=== PATIENT | female | born 1990 | race African-American/Black ===

== ENCOUNTER 2016-09-16 12:22 | Emergency (ER) | payer SELFPAY ==
[2016-09-16 12:33] VITALS: BP 144/72
[2016-09-16] MEDS ORDERED: CEPH500T PO (13:07)
--- NOTE | 2016-09-16 13:07 | PHYS DOC ---
Past Medical History Past Medical History: No Pertinent History Past Surgical History: No Surgical History Alcohol Use: Occasionally Drug Use: None Adult General Chief Complaint Chief Complaint: INSECT BITE [facility] HPI Patient is a 26 year old female presents to the emergency department with multiple blood bites on the right thigh as well as on the right hand, left upper arm. The areas appear to be red swollen and tender. No drainage or discharge noted from the site. Patient denies any fever, chills or any nausea vomiting. She is unsure when her last tetanus immunization occurred. Patient states the areas itch and are very irritated. She has not tried anything at home. Review of Systems Review of Systems Constitutional: Denies fever or chills [] Eyes: Denies change in visual acuity, redness, or eye pain [] HENT: Denies nasal congestion or sore throat [] Respiratory: Denies cough or shortness of breath [] Cardiovascular: No additional information not addressed in HPI [] GI: Denies abdominal pain, nausea, vomiting, bloody stools or diarrhea [] : Denies dysuria or hematuria [] Musculoskeletal: Denies back pain or joint pain [] Integument: Denies rash or skin lesions. Bites per multiple areas. Neurologic: Denies headache, focal weakness or sensory changes [] Endocrine: Denies polyuria or polydipsia [] Allergies Allergies Allergies Coded Allergies Type Severity Reaction Last Updated Verified No Known Drug Allergies 03/13/14 No Physical Exam Physical Exam Constitutional: Well developed, well nourished, no acute distress, non-toxic appearance. [] HENT: Normocephalic, atraumatic, bilateral external ears normal, oropharynx moist, no oral exudates, nose normal. [] Eyes: PERRLA, EOMI, conjunctiva normal, no discharge. [] Neck: Normal range of motion, no tenderness, supple, no stridor. [] Cardiovascular:Heart rate regular rhythm, no murmur [] Lungs & Thorax: Bilateral breath sounds clear to auscultation [] Skin: Warm, dry, no erythema, no rash. Patient with multiple bites throughout the body. The areas on the right thigh appears to be red warm and tender to touch no drainage or discharge noted from the site. Back: No tenderness Extremities: No tenderness, no cyanosis, no clubbing, ROM intact, no edema. [] Neurologic: Alert and oriented X 3, normal motor function, normal sensory function, no focal deficits noted. [] Psychologic: Affect normal, judgement normal, mood normal. [] Current Patient Data Vital Signs Vital Signs Date Time Temp Pulse Resp B/P (MAP) Pulse Ox O2 Delivery O2 Flow Rate FiO2 09/16/16 12:33 98.3 58 18 98 Room Air 98.3 EKG EKG [] Radiology/Procedures Radiology/Procedures [] Course & Med Decision Making Course & Med Decision Making Pertinent Labs and Imaging studies reviewed. (See chart for details) Patient was encouraged to use Benadryl 25 mg every 6 hours to help with itching and irritation. Recommended keeping the area clean dry and cool to help prevent irritation. Patient will be placed on antibiotics. Also recommended Aveeno baths. Signs symptoms to return back to emergency department has been provided. Patient agrees with discharge instructions, treatment regimens and follow-up recommendations. Dragon Disclaimer Dragon Disclaimer This electronic medical record was generated, in whole or in part, using a voice recognition dictation system. Departure Departure Impression: Primary Impression: Insect bites Disposition: HOME, SELF-CARE Condition: STABLE Referrals: NO PCP (PCP) Patient Instructions: Insect Bite, [id number] Additional Instructions: Benadryl 25 mg every 6 hours as needed for itching and irritation. This medication will cause drowsiness. Medications as prescribed. Keep the areas clean dry and cool this will help prevent irritation. Aveeno baths may also help soothe the skin. Follow-up with a primary care physician in the next 7-10 days. Return back to emergency prior signs symptoms that become worse. Scripts Cephalexin (CEPHALEXIN) 500 Mg Tablet 1 TAB PO BID, #20 TAB Prov: ANGIE CASEY APRN 09/16/16 ANGIE CASEY APRN Sep 16, 2016 13:07
[2016-09-16] MEDS ORDERED: DIPHTH,PERTUSS(ACELL),TET TOX 0.5 ML DISP.SYRIN. VAX IM ONE (13:15)
== END 2016-09-16 13:16 | disposition home or self-care (01) ==
LOC: ER 12:22
DX: S71.151A Open bite, right thigh, initial encounter (principal); W57.XXXA Bitten or stung by nonvenomous insect and other nonvenomous arthropods, initial encounter; Y93.89 Activity, other specified; Y99.8 Other external cause status; Y92.89 Other specified places as the place of occurrence of the external cause
CPT/HCPCS: 90471; 90715; 99283-25

== ENCOUNTER 2018-08-01 15:21 | Emergency (ER) | payer SELFPAY ==
[~2018-08-01] VITALS: Ht 172.7 cm; Wt 167.8 kg
[~2018-08-01 15:21] MED LIST: CEPH500T PO
[2018-08-01 15:54] VITALS: BP 196/89
[2018-08-01] MEDS ORDERED: LIDOCAINE 2% VISCOUS 15 ML SOLUTION. MM STA (15:56)
[2018-08-01] MEDS ORDERED: diazePAM 5 MG TABLET PO ONE (16:00)
[2018-08-01] MEDS ORDERED: cefTRIAXone IM 250 MG VIAL IM ONE (16:00)
[2018-08-01] MEDS ORDERED: AZITHROMYCIN 250 MG TABLET. PO ONE (16:00)
--- NOTE | 2018-08-01 16:25 | PHYS DOC ---
Past Medical History Past Medical History: No Pertinent History Past Surgical History: No Surgical History Alcohol Use: Occasionally Drug Use: None Adult General Chief Complaint Chief Complaint: VAGINAL PROBLEM HPI HPI Patient is a 28 year old AA female who presents to the ER with complaints of vaginal discomfort and burning with urination for the last 3 days. Pt states sx began after she used a new soap to wash her genitals. Pt denies any hx of genital herpes. She states she was checked for everything at the health department less than a year ago and denies any new sexual partners. She denies any irregular vaginal discharge, abdominal pain, nausea or vomiting. Review of Systems Review of Systems Constitutional: Denies fever or chills [] GI: Denies abdominal pain, nausea, vomiting, or diarrhea [] : Denies hematuria; see HPI Musculoskeletal: Denies back pain or joint pain [] Integument: Denies rash or skin lesions [] Neurologic: Denies headache, focal weakness or sensory changes [] All other systems were reviewed and found to be within normal limits, except as documented in this note. Current Medications Current Medications Current Medications Medications (Trade) Dose Ordered Sig/Han Start Time Stop Time Status Last Admin Dose Admin Azithromycin (Zithromax) 1,000 mg 1X ONCE 08/01/18 16:00 08/01/18 16:04 DC 08/01/18 16:16 1,000 MG Ceftriaxone Sodium (Rocephin Im) 250 mg 1X ONCE 08/01/18 16:00 08/01/18 16:04 DC 08/01/18 16:17 250 MG Diazepam (Valium) 5 mg 1X ONCE 08/01/18 16:00 08/01/18 16:04 DC 08/01/18 16:16 5 MG Lidocaine HCl (Viscous Lidocaine) 15 ml 1X STAT 08/01/18 15:56 08/01/18 16:04 DC 08/01/18 16:16 15 ML Allergies Allergies Allergies Coded Allergies Type Severity Reaction Last Updated Verified No Known Drug Allergies 03/13/14 No Physical Exam Physical Exam Constitutional: Well developed, well nourished, no acute distress, non-toxic appearance, obese. [] HENT: Normocephalic, atraumatic, bilateral external ears normal, oropharynx moist, nose normal. [] Eyes: conjunctiva normal, no discharge. [] Neck: Normal range of motion, no stridor. [] Pelvic Exam: Rn Registry present Shahrzad ALBRIGHT Abdomen: Nontender, soft External Genitalia: several blisters and ulcerations noted to external labia concerning for genital herpes Speculum: yellow to green vaginal discharge that is malodorous, ulcerations present in vaginal vault Skin: Warm, dry, no erythema, no rash. [] Extremities: No cyanosis, ROM intact Neurologic: Alert and oriented X 3, no focal deficits noted. [] Psychologic: Affect normal, judgement normal, mood normal. [] Current Patient Data Vital Signs Vital Signs Date Time Temp Pulse Resp B/P (MAP) Pulse Ox O2 Delivery O2 Flow Rate FiO2 08/01/18 15:54 98.4 104 18 196/89 (124) 100 Room Air 98.4 Lab Values Laboratory Tests Test 08/01/18 15:30 08/01/18 16:26 Urine Collection Type Unknown Urine Color Yellow Urine Clarity Clear Urine pH 5.5 Urine Specific [place] 1.025 Urine Protein Negative mg/dL (NEG-TRACE) Urine Glucose (UA) Negative mg/dL (NEG) Urine Ketones (Stick) Negative mg/dL (NEG) Urine Blood Trace (NEG) Urine Nitrite Negative (NEG) Urine Bilirubin Negative (NEG) Urine Urobilinogen Dipstick 1.0 mg/dL (0.2 mg/dL) Urine Leukocyte Esterase Trace (NEG) Urine RBC Occ /HPF (0-2) Urine WBC 1-4 /HPF (0-4) Urine Squamous Epithelial Cells Many /LPF Urine Bacteria Many /HPF (0-FEW) Urine Mucus Marked /LPF POC Urine HCG, Qualitative Hcg negative (Negative) Microbiology 08/01/18 Wet Prep - Final, Complete Laboratory Tests Test 08/01/18 15:30 08/01/18 16:26 Urine Collection Type Unknown Urine Color Yellow Urine Clarity Clear Urine pH 5.5 Urine Specific [place] 1.025 Urine Protein Negative mg/dL (NEG-TRACE) Urine Glucose (UA) Negative mg/dL (NEG) Urine Ketones (Stick) Negative mg/dL (NEG) Urine Blood Trace (NEG) Urine Nitrite Negative (NEG) Urine Bilirubin Negative (NEG) Urine Urobilinogen Dipstick 1.0 mg/dL (0.2 mg/dL) Urine Leukocyte Esterase Trace (NEG) Urine RBC Occ /HPF (0-2) Urine WBC 1-4 /HPF (0-4) Urine Squamous Epithelial Cells Many /LPF Urine Bacteria Many /HPF (0-FEW) Urine Mucus Marked /LPF POC Urine HCG, Qualitative Hcg negative (Negative) Microbiology 08/01/18 Wet Prep - Final, Complete EKG EKG [] Radiology/Procedures Radiology/Procedures [] Course & Med Decision Making Course & Med Decision Making Pertinent Labs and Imaging studies reviewed. (See chart for details) 1555- Pt notified of likely herpes outbreak, pt became very anxious and emotional, PO valium ordered. DX: BV, genital herpes, contact with suspected STI, dysuria Patient was treated prophylactically with 250 mg of IM Rocephin, and 1 g of PO Zithromax. Patient was instructed to avoid having intercourse until the results of gonorrhea and chlamydia testing are available, patient was notified that these results would not be available for 48 hours. If one or both of these tests is positive, patient needs to refrain from intercourse for approximately 1 week following the treatment of any current partners. Pt aware that viral cx takes 2-3 days for herpes test result. Dragon Disclaimer Dragon Disclaimer This electronic medical record was generated, in whole or in part, using a voice recognition dictation system. Departure Departure Impression: Primary Impression: Bacterial vaginosis Additional Impressions: Genital herpes Dysuria Contact with and (suspected) exposure to infections with a predominantly sexual mode of transmission Disposition: 01 HOME, SELF-CARE Condition: STABLE Referrals: NO PCP (PCP) Patient Instructions: Bacterial Vaginosis, [id number], Genital Herpes, Sexually Transmitted Disease, [id number] Additional Instructions: Avoid having intercourse until the results of your STD testing are available, these results would not be available for 48 hours. Follow up with your PCP if symptoms persist, return to ER if sx worsen. Scripts [viscous lidocaine] 2% No Conflict Check 1 DONG TOP Q3HRS PRN for PAIN for 5 Days, #50 ML 0 Refills Prov: MELA RUBIO APRN 08/01/18 Metronidazole (FLAGYL) 500 Mg Tablet 1 TAB PO BID, #14 TAB 0 Refills Prov: MELA RUBIO APRN 08/01/18 Acyclovir (ACYCLOVIR) 400 Mg Tablet 1 TAB PO TID, #30 TAB 0 Refills Prov: MELA RUBIO [employer]GER 08/01/18 Prednisone (PREDNISONE) 50 Mg Tablet 1 TAB PO DAILY, #5 TAB 0 Refills Prov: MELA RUBIO APRN 08/01/18 Problem Qualifiers Additional Impressions: Genital herpes Herpes simplex infection site: vulvovaginitis Qualified Codes: A60.04 - Herpesviral vulvovaginitis MELA RUBIO APRN Aug 01, 2018 16:25
[2018-08-01 16:36] LABS: BILIRUBIN,URINE NEGATIVE (NEG); CLARITY,URINE CLEAR; COLOR,URINE YELLOW; NITRITE,URINE NEGATIVE (NEG); PH,URINE 5.5; PROTEIN,URINE NEGATIVE (NEG-TRACE)
[2018-08-01 16:50] LABS: RBC,URINE OCC /HPF (0-2)
[2018-08-01] MEDS ORDERED: ACYC400T PO (16:50)
[2018-08-01] MEDS ORDERED: METR500T PO (16:50)
[2018-08-01] MEDS ORDERED: PRED50TA PO (16:50)
[2018-08-01 16:51] LABS: BACTERIA,URINE MANY /HPF (0-FEW); SQUAMOUS EPITHELIAL CELL,UR MANY /LPF
[2018-08-01] MEDS ORDERED: viscous lidocaine TOP (16:53)
[2018-08-03 17:13] LABS: HERPES SIMPLEX TYPE 1 Positive (Negative); HERPES SIMPLEX TYPE 2 Negative (Negative)
[2018-08-04 15:15] LABS: GC PROBE Negative (Negative)
== END 2018-08-01 16:58 | disposition home or self-care (01) ==
LOC: ER 15:21
DX: A60.04 Herpesviral vulvovaginitis (principal); N76.0 Acute vaginitis; B96.89 Other specified bacterial agents as the cause of diseases classified elsewhere; R30.0 Dysuria; Z20.2 Contact with and (suspected) exposure to infections with a predominantly sexual mode of transmission
CPT/HCPCS: 36415; 81001; 81025; 87086; 87491; 87529; 87591; 99284; J0696; Q0111; Q0144

== ENCOUNTER 2018-08-03 03:36 | Emergency (ER) | payer SELFPAY ==
[~2018-08-03] VITALS: Ht 175.3 cm; Wt 167.8 kg
[~2018-08-03 03:36] MED LIST changes: +ACYC400T PO; +METR500T PO; +PRED50TA PO; +viscous lidocaine TOP
[2018-08-03 03:39] VITALS: BP 156/102
[2018-08-03] MEDS ORDERED: ONDANSETRON ODT 4 MG TAB.RAPDIS. PO ONE (04:00)
[2018-08-03] MEDS ORDERED: KETOROLAC 30 MG/ML VIAL. IM ONE (04:00)
[2018-08-03] MEDS ORDERED: HYDR-3164 PO (04:01)
--- NOTE | 2018-08-03 04:01 | PHYS DOC ---
Past Medical History Past Medical History: No Pertinent History Past Surgical History: No Surgical History Alcohol Use: Occasionally Drug Use: None Adult General Chief Complaint Chief Complaint: VAGINAL PROBLEM HPI HPI Patient is a 28 year old [f__sex] who presents with [] Review of Systems Review of Systems Constitutional: Denies fever or chills [] Eyes: Denies change in visual acuity, redness, or eye pain [] HENT: Denies nasal congestion or sore throat [] Respiratory: Denies cough or shortness of breath [] Cardiovascular: No additional information not addressed in HPI [] GI: Denies abdominal pain, nausea, vomiting, bloody stools or diarrhea [] : Denies dysuria or hematuria [] Musculoskeletal: Denies back pain or joint pain [] Integument: Denies rash or skin lesions [] Neurologic: Denies headache, focal weakness or sensory changes [] Endocrine: Denies polyuria or polydipsia [] All other systems were reviewed and found to be within normal limits, except as documented in this note. Current Medications Current Medications Current Medications Medications (Trade) Dose Ordered Sig/Han Start Time Stop Time Status Last Admin Dose Admin Ketorolac Tromethamine (Toradol 30mg Vial) 30 mg 1X ONCE 08/03/18 04:00 08/03/18 04:01 UNV Ondansetron HCl (Zofran Odt) 4 mg 1X ONCE 08/03/18 04:00 08/03/18 04:01 UNV Allergies Allergies Allergies Coded Allergies Type Severity Reaction Last Updated Verified No Known Drug Allergies 03/13/14 No Physical Exam Physical Exam Constitutional: Well developed, well nourished, no acute distress, non-toxic appearance. [] HENT: Normocephalic, atraumatic, bilateral external ears normal, oropharynx moist, no oral exudates, nose normal. [] Eyes: PERRLA, EOMI, conjunctiva normal, no discharge. [] Neck: Normal range of motion, no tenderness, supple, no stridor. [] Cardiovascular:Heart rate regular rhythm, no murmur [] Lungs & Thorax: Bilateral breath sounds clear to auscultation [] Abdomen: Bowel sounds normal, soft, no tenderness, no masses, no pulsatile masses. [] Skin: Warm, dry, no erythema, no rash. [] Back: No tenderness, no CVA tenderness. [] Extremities: No tenderness, no cyanosis, no clubbing, ROM intact, no edema. [] Neurologic: Alert and oriented X 3, normal motor function, normal sensory function, no focal deficits noted. [] Psychologic: Affect normal, judgement normal, mood normal. [] EKG EKG [] Radiology/Procedures Radiology/Procedures [] Course & Med Decision Making Course & Med Decision Making Pertinent Labs and Imaging studies reviewed. (See chart for details) [] Dragon Disclaimer Dragon Disclaimer This electronic medical record was generated, in whole or in part, using a voice recognition dictation system. Departure Departure Impression: Primary Impression: Genital herpes Disposition: HOME, SELF-CARE Condition: STABLE Referrals: NO PCP (PCP) LUISA MALLOY Jr, MD Patient Instructions: Genital Herpes Additional Instructions: Continue previously prescribed medications. Discontinue topical lidocaine if it causes more discomfort. Use over the counter Ibuprofen for pain (600mg which is 3 over the counter tabs) Scripts Hydrocodone/Apap 5-325 (NORCO 5-325 TABLET) 1 Each Tablet 0.5-1 TAB PO PRN Q6HRS PRN for PAIN, #8 TAB 0 Refills Prov: TYRELL HIDALGO DO 08/03/18 Problem Qualifiers Primary Impression: Genital herpes Herpes simplex infection site: vulvovaginitis Qualified Codes: A60.04 - Herpesviral vulvovaginitis TYRELL HIDALGO DO Aug 03, 2018 04:01
== END 2018-08-03 04:10 | disposition home or self-care (01) ==
LOC: ER 03:36
DX: A60.04 Herpesviral vulvovaginitis (principal)
CPT/HCPCS: 96372; 99283; J1885; Q0162

== ENCOUNTER → 2018-08-15 | Outpatient (CLI) | payer SELFPAY ==
[2018-08-03 03:39] VITALS: BP 156/102
[~2018-08-15] MED LIST changes: +HYDR-3164 PO
== END | disposition home or self-care (01) ==
LOC: LAB 11:50
PROVIDERS: ATTEND Obstetrics & Gynecology
DX: Z20.2 Contact with and (suspected) exposure to infections with a predominantly sexual mode of transmission (principal)
CPT/HCPCS: 86592; 86695; 86703